=== PATIENT | female | born 1950 | race Caucasian/White ===

== ENCOUNTER 2017-07-18 13:30 | Outpatient (RCR) | payer MEDICARE, OTHER, SELFPAY ==
--- NOTE | 2017-06-27 15:47 | ST.OPIE ---
Provider Information Visit Care Team Role Provider Type LIZBETH Pierce Attending Provider Non-Staff Primary Care Provider Specialty: Medical Address: [address] [place] [address], [id number] Email: Speech-Language Pathology Initial Evaluation FISCAL ECONOMIST Clinical Swallow Evaluation Start: 06/27/17 15:24 Freq: Status: Active Protocol: Document 06/27/17 15:24 TLC (Rec: 06/27/17 15:47 TLC [id number]) Clinical Swallow Evaluation Session Time Visit Start Time 13:30 Visit Stop Time 14:20 Total Visit Minutes 50 Visit Information Visit Number 1 Plan of Care Dates Medicare Referral Referring Physician Reason for Referral Dysphagia identified during swallow screening Setting Assessment Location Outpatient Care Visit Type Note Type Initial Evaluation Next Note Type Next Note Type Treatment Note Patient Information Identification Type Name History Arianna is a 66 year old retired female with recent onset of symptoms consistent with dysphagia over the last 2 -3 months including frequent coughing and throat clearing as well as the sensation of food being caught in her throat after she swallows. Patient developed pneumonia ( unknown type) in the beginning of January 2017. She has a medical history of back pain, osteopenia and varicose veins. No other significant medical history. Subjective Observations Patient arrived on time. Evaluation Liquids Trialed Thin Solids Trialed Puree Dysphagia Mechanical Dysphagia Advanced Regular Administration Type Tea Spoon Controlled Cup Sip Self-Feeding Oral Impairment Mildly Impaired Oral Strategies Upright at 90 degrees Controlled Bite/Sip Size Alternate Liquids/Solids Other Oral Phase Comments Patient exhibits good oral acceptance of bolus; however, reports food going down the back of her throat before she is ready to swallow consistent with premature spillage and weak tongue control during bolus hold. With trial of chin down posture, patient reported significant improvements in management of bolus and preventing premature spillage. No oral residue observed. Pharyngeal Impairment Mildly Impaired Pharyngeal Phase Strategies Sitting Upright (90 deg) Effortful Swallow Small Bites and Sips Alternate Liquids/Solids Pharyngeal Phase Comments Patient exhibited a throat clear with trial of peaches. No other overt signs of aspiration were observed. We discussed the possibility of her throat clear being caused by unchewed pieces of peach which spilled into the pharyngeal cavity prematurely. Patient performed independent second swallow and liquid wash which cleared sensation of residue. Findings Dysphagia Type Oropharyngeal Rehabilitation Potential Excellent Impressions Given patient's symptoms and presentation, I suspect mild oropharyngeal dysphagia characterized by premature spillage and pharyngeal residue. With trial of chin down position, patient reported notable improvements with bolus control and containment in oral cavity. Patient's sensation of food stuck in throat improves with second swallow and/or liquid rinse. She was instructed in the use of these strategies as well as pharyngeal and base/ back of tongue strengthening exercises. Diet Recommendations Liquids Order Thin Diet Order Regular Medication Recommendations As Tolerated Aspiration Precautions Recommended Precautions Upright at 90 Degrees Alternate Liquids/Solids Small Bites/Sips Effortful Swallow Double Swallow Additional Precautions Chin down Treatment Plan Appropriate for Therapy Yes Therapy Recommendations Follow-up in two weeks to review pharyngeal and base/ back of tongue strengthening exercises. Dysphagia Goals Arianna will independently perform HEP as recommended in order to improve swallow function and reduce symptoms as evidenced by patient report and possible MBS if warranted . Arianna will implement strategies including chin down posture, throat clear with second swallow and liquid wash in order to minimize symptoms as evidenced by patient report. Please Sign and Return: I have reviewed this Plan of Care and certify that the skilled therapy services above are required to meet the patient???s needs. Physician Signature Date Printed Name and Credentials
== END 2017-10-29 13:13 ==
LOC: SP 13:30
PROVIDERS: PCP Nurse Practitioner Family; Visit Provider Nurse Practitioner Family
DX: R13.10 Dysphagia, unspecified (principal)
CPT/HCPCS: 92526; 92610

== ENCOUNTER → 2017-10-14 12:46 | Outpatient (CLI) | payer MEDICARE, OTHER, SELFPAY | PROVIDERS: PCP Nurse Practitioner Family; Visit Provider Nurse Practitioner Family | DX: M81.0 Age-related osteoporosis without current pathological fracture (principal); Z78.0 Asymptomatic menopausal state | CPT/HCPCS: 77080 ==

== ENCOUNTER → 2017-11-07 14:43 | Outpatient (CLI) | payer MEDICARE, OTHER, SELFPAY ==
--- NOTE | 2017-11-07 | DI.MRI.S_ITS ---
PROCEDURE: MR HEAD/BRAIN WO CON INDICATIONS: DEMENTIA. DECREASED BALANCE TECHNIQUE: Non-contrast axial T1 spin echo, axial T2 fast spin echo, sagittal and axial FLAIR, coronal T2 fast spin echo, axial gradient echo, axial diffusion and ADC through the brain. COMPARISON: None. FINDINGS: Image quality: Excellent. CSF spaces: Ventricles appear symmetric in size and shape. Basal cisterns are patent. No extra-axial fluid collections. Brain: No intracranial bleeds or mass effects. There is cerebral volume loss for age. There are periventricular and deep white matter chronic small vessel ischemic changes. Brainstem appears normal. Diffusion-weighted images show no acute ischemic insults. No chronic ischemic insults. Normal intravascular flow voids are present. Skull and face: Calvarial bone marrow is normal in signal. Orbits are normal. Sinuses: Sinuses demonstrate mild pansinus scattered fluid. There is minimal fluid within the mastoid air cells bilaterally. IMPRESSION: 1. No acute intracranial process. 2. Mild atrophy and chronic microvascular ischemic changes. Dictated by: Rossana Beltre M.D. on 11/07/2017 at 16:02 Approved by: Rossana Beltre M.D. on 11/07/2017 at 16:07
== END ==
PROVIDERS: PCP Nurse Practitioner Family; Visit Provider Specialist
DX: F03.90 Unspecified dementia, unspecified severity, without behavioral disturbance, psychotic disturbance, mood disturbance, and anxiety (principal)
CPT/HCPCS: 70551

== ENCOUNTER → 2017-11-26 09:53 | Outpatient (CLI) | payer MEDICARE, OTHER, SELFPAY ==
[2017-11-26 11:06] LABS: Calcium 9.6 mg/dL (8.4-10.2); Phosphorous 4.2 mg/dL (2.8-4.1)
[2017-11-26 11:17] LABS: Vitamin D 25 Hydroxy (D3) 48.2 ng/mL (30.0-100.0)
[2017-11-28 14:36] LABS: Parathyroid Hormone Int 38 pg/mL (14-64)
== END ==
PROVIDERS: PCP Nurse Practitioner Family; Visit Provider Nurse Practitioner
DX: M81.0 Age-related osteoporosis without current pathological fracture (principal)
CPT/HCPCS: 36415; 82306; 82310; 82523; 83970; 84100

== ENCOUNTER → 2017-12-27 12:12 | Outpatient (CLI) | payer MEDICARE, OTHER, SELFPAY ==
--- NOTE | 2017-12-27 12:14 | DI.MG.S_ITS ---
BILATERAL DIGITAL SCREENING MAMMOGRAM 3D/2D WITH CAD: 12/27/2017 CLINICAL: Routine screening. Comparison is made to exams dated: 12/05/2016 mammogram, 10/10/2015 mammogram, and 10/04/2014 mammogram - [facility]. The tissue of both breasts is heterogeneously dense. This may lower the sensitivity of mammography. Current study was also evaluated with a Computer Aided Detection (CAD) system. No significant masses, calcifications, or other findings are seen in either breast. There has been no significant interval change. IMPRESSION: NEGATIVE There is no mammographic evidence of malignancy. A 1 year screening mammogram is recommended. This exam was interpreted at Station ID: [id number]. NOTE: For mammograms, a report in lay terms will be sent to the patient. Approximately 15% of breast malignancies will not be visualized mammographically. In the management of a palpable breast mass, a negative mammogram must not discourage biopsy of a clinically suspicious lesion. Electronically Signed By: Sejal paz/sima:12/29/2017 09:15:49 letter sent: Normal Exam ACR BI-RADS Category 1: Negative 3341F
== END ==
PROVIDERS: PCP Nurse Practitioner Family; Visit Provider Nurse Practitioner Family
DX: Z12.31 Encounter for screening mammogram for malignant neoplasm of breast (principal)
CPT/HCPCS: 77063; 77067

== ENCOUNTER 2018-01-29 13:30 | Outpatient (RCR) | payer MEDICARE, OTHER, SELFPAY | END 2018-02-12 14:16 | LOC: SP 13:30 | PROVIDERS: PCP Nurse Practitioner Family; Visit Provider Nurse Practitioner Family | DX: G31.84 Mild cognitive impairment of uncertain or unknown etiology (principal) | CPT/HCPCS: 96125 ==

== ENCOUNTER → 2018-09-04 12:48 | Outpatient (CLI) | payer MEDICARE, OTHER, SELFPAY ==
--- NOTE | 2018-09-04 12:49 | DI.MRI.S_ITS ---
PROCEDURE: MR LUMBAR SPINE WO CON INDICATIONS: Low back pain TECHNIQUE: Noncontrast sagittal T1 spin echo and T2 fast echo, sagittal STIR, axial T1 and T2 fast spin echo through the lumbar spine. In cases with scoliosis, additional coronal T2 fast spin echo may be performed. COMPARISON: [facility], [place], THORAX WITH CONTRAST, 01/23/2017, 10:47. FINDINGS: Image quality: Excellent. Alignment and Curvature: There is mildly levoscoliotic bony alignment. Bone Marrow: Marrow is of normal overall signal. No acute vertebral body compression fractures. Spinal Cord: Conus medullaris terminates at the L1 level. Visualized cord demonstrates normal signal and size. Paraspinous Soft Tissues: No paravertebral masses. Note is made of a perineural cyst at the S2 segment at and to the left of midline. This is located within the remnant of the spinal canal in this area. L1-L2: Abnormal degenerative appearance with a moderate degree of disc height reduction and desiccation and bilateral facet osteoarthritis. There is only mild spinal stenosis as a result, however, and no definite foraminal stenosis on the left. Mild foraminal stenosis on the right is present with potential for asymmetric right-sided L1 nerve root impingement. L2-L3: At this level the degenerative disc disease is moderate, facet osteoarthritis is severe. Concentric spinal stenosis is present due to these factors and ligamentum flavum hypertrophy. Facet hyperostosis results in moderate symmetric foraminal stenosis. Both spinal and foraminal stenosis appears present at this level. L3-L4: The degenerative disc disease and facet osteoarthritis at this level is overall moderately severe with near severe spinal stenosis due to predominantly ligamentum flavum hypertrophy and symmetric facet hyperostosis. There is a slight posterior disc bulge. No disc herniation. L4-L5: Mild degenerative disc disease, moderately severe facet osteoarthritis. Mild to moderate spinal stenosis appears Concentric, moderate bilateral facet osteoarthritis produces foraminal stenosis that is mild to moderate. L5-S1: Facet osteoarthritis is mild to moderate, final stenosis is not present. Foraminal stenosis is minimal. No disc herniation found.. IMPRESSION: Mild levoscoliosis centered at the L2 level of the LS spine. No disc herniation is found. No trauma seen. The degenerative disc disease and facet osteoarthritis along the lumbosacral spine overall is moderately severe and comprised largely of facet hyperostosis leading to spinal and foraminal stenosis when the additional influence of ligamentum flavum hypertrophy and facet disease are added to the mild degenerative changes present superimpose. Multilevel spinal and foraminal stenosis is present with likelihood of significant multilevel radiculopathy as discussed in detail by level in the body of the report above. Dictated by: Winston Christensen M.D. on 09/04/2018 at 15:55 Approved by: Winston Christensen M.D. on 09/04/2018 at 16:05
== END ==
PROVIDERS: PCP Nurse Practitioner Family; Visit Provider Physical Medicine & Rehabilitation
DX: M47.817 Spondylosis without myelopathy or radiculopathy, lumbosacral region (principal); M54.5 Low back pain; M51.36 Other intervertebral disc degeneration, lumbar region; M47.816 Spondylosis without myelopathy or radiculopathy, lumbar region; M51.37 Other intervertebral disc degeneration, lumbosacral region; M48.061 Spinal stenosis, lumbar region without neurogenic claudication
CPT/HCPCS: 72148

== ENCOUNTER → 2018-10-15 13:15 | Outpatient (CLI) | payer MEDICARE, OTHER, SELFPAY | PROVIDERS: Family Provider Nurse Practitioner Family; PCP Nurse Practitioner Family; Visit Provider Nurse Practitioner | DX: M85.851 Other specified disorders of bone density and structure, right thigh (principal); Z78.0 Asymptomatic menopausal state; Z90.722 Acquired absence of ovaries, bilateral | CPT/HCPCS: 77080 ==

== ENCOUNTER → 2019-01-13 11:51 | Outpatient (CLI) | payer MEDICARE, OTHER, SELFPAY ==
--- NOTE | 2019-01-13 | DI.MG.S_ITS ---
BILATERAL DIGITAL SCREENING MAMMOGRAM 3D/2D WITH CAD: 01/13/2019 CLINICAL: Routine screening. Comparison is made to exams dated: 12/27/2017 mammogram, 12/05/2016 mammogram, and 10/10/2015 mammogram - [facility]. The tissue of both breasts is heterogeneously dense. This may lower the sensitivity of mammography. Current study was also evaluated with a Computer Aided Detection (CAD) system. No significant masses, calcifications, or other findings are seen in either breast. There has been no significant interval change. IMPRESSION: NEGATIVE There is no mammographic evidence of malignancy. A 1 year screening mammogram is recommended. This exam was interpreted at Station ID: [id number]. NOTE: For mammograms, a report in lay terms will be sent to the patient. Approximately 15% of breast malignancies will not be visualized mammographically. In the management of a palpable breast mass, a negative mammogram must not discourage biopsy of a clinically suspicious lesion. Electronically Signed By: Sourav zavala/sima:01/13/2019 12:23:11 letter sent: Normal Exam ACR BI-RADS Category 1: Negative 3341F
== END ==
PROVIDERS: Visit Provider Nurse Practitioner Family
DX: Z12.31 Encounter for screening mammogram for malignant neoplasm of breast (principal)
CPT/HCPCS: 77063; 77067

== ENCOUNTER → 2020-02-03 12:51 | Outpatient (CLI) | payer MEDICARE, OTHER, SELFPAY | PROVIDERS: PCP Internal Medicine; Referring Provider Nurse Practitioner Family; Visit Provider Nurse Practitioner Family | DX: Z12.31 Encounter for screening mammogram for malignant neoplasm of breast (principal); Z53.8 Procedure and treatment not carried out for other reasons ==

== ENCOUNTER → 2020-04-24 14:50 | Outpatient (CLI) | payer MEDICARE, OTHER, SELFPAY ==
[2020-04-24] MEDS: COVID-19 VACC, Ad26(JANSSEN)/PF 0.5 ML IM (14:55)
== END ==
PROVIDERS: PCP Internal Medicine; Visit Provider Internal Medicine
DX: Z23 Encounter for immunization (principal)
CPT/HCPCS: 0031A; 91303

== ENCOUNTER → 2020-11-01 12:42 | Outpatient (CLI) | payer MEDICARE, OTHER, SELFPAY | PROVIDERS: PCP Internal Medicine; Referring Provider Internal Medicine; Visit Provider Internal Medicine | DX: M81.0 Age-related osteoporosis without current pathological fracture (principal); M85.852 Other specified disorders of bone density and structure, left thigh; M85.851 Other specified disorders of bone density and structure, right thigh | CPT/HCPCS: 77080 ==

== ENCOUNTER → 2021-07-21 09:16 | Outpatient (CLI) | payer MEDICARE, OTHER, SELFPAY ==
[2021-07-21 09:39] LABS: Add Manual Diff / Slide Review NO; Basophils Absolute Auto 0 /uL (0-100); Basophils Percent Auto 0.2 % (0-2); Eosinophils Absolute Auto 700 /uL (0-450); Eosinophils Percent Auto 19.6 % (2-4); Hematocrit 37.5 % (36-46); Hemoglobin 12.3 g/dL (12.0-16.0); Lymphocytes Absolute Auto 1200 /uL (1100-4500); Lymphocytes Percent Auto 37.1 % (25-40); Mean Corpuscular HGB Conc 32.9 % (30-36); Mean Corpuscular Hemoglobin 25.8 PG (26-34); Mean Corpuscular Volume 78.5 fL (80-100); Monocytes Absolute Auto 300 /uL (0-900); Monocytes Percent Auto 8.9 % (3-14); Neutrophils Absolute Auto 1100 /uL (1500-7000); Neutrophils Percent Auto 34.2 % (50-75); Platelet Count 212 X10^3/uL (150-400); Red Blood Cell Count 4.78 X10^6/uL (4.0-5.2); Red Cell Distribution Width 17.1 % (11.6-14.8); White Blood Cell Count 3.4 X10^3/uL (4.5-11.0)
[2021-07-21 10:04] LABS: Hemoglobin A1C% w Est Avg Glu 5.3 % (4.0-6.0)
[2021-07-21 10:25] LABS: Alanine Aminotransferase 18 IU/L (<35); Albumin 4.4 g/dL (3.5-5.0); Albumin Globulin Ratio 1.5 (1.0-2.8); Alkaline Phosphatase 83 U/L (38-126); Aspartate Aminotransferase 38 IU/L (14-36); BUN Creatinine Ratio 22.1 (6-22); Bilirubin Total 0.3 mg/dL (0.2-1.3); Blood Urea Nitrogen 17 mg/dL (7-17); Calcium 9.3 mg/dL (8.4-10.2); Carbon Dioxide 29 mmol/L (22-32); Chloride 106 mmol/L (98-107); Cholesterol 193 mg/dL (140-199); Estimated Glomerular Filt Rate > 60 mL/min (>60); Globulin 2.9 g/dL (1.7-4.1); Glucose 89 mg/dL (80-110); HDL Cholesterol 94 mg/dL (40-60); HEMOLYSIS < 15 (0-50); LDL Cholesterol Calculated 87 mg/dL (<100); Potassium 4.5 mmol/L (3.4-5.1); Sodium 141 mmol/L (137-145); Total Protein 7.3 g/dL (6.3-8.2); Triglycerides 59 mg/dL (35-150)
[2021-07-21 10:53] LABS: Thyroid Stimulating Hormone 1.75 uIU/mL (0.47-4.68)
== END ==
PROVIDERS: PCP Internal Medicine; Referring Provider Internal Medicine; Visit Provider Internal Medicine
DX: Z00.00 Encounter for general adult medical examination without abnormal findings (principal); D72.819 Decreased white blood cell count, unspecified; F41.8 Other specified anxiety disorders
CPT/HCPCS: 36415; 80053; 80061; 83036; 84443; 85025

== ENCOUNTER → 2022-02-08 12:42 | Outpatient (CLI) | payer MEDICARE, OTHER, SELFPAY ==
--- NOTE | 2022-02-08 | DI.MG.S_ITS ---
BILATERAL DIGITAL SCREENING MAMMOGRAM 3D/2D WITH CAD: 02/08/2022 CLINICAL: Routine screening. Comparison is made to exams dated: 02/21/2020 mammogram - [facility], 01/13/2019 mammogram, and 12/27/2017 mammogram - [facility]. Both breasts are heterogeneously dense, which may obscure small masses (category c / 51-75% glandular tissue). Current study was also evaluated with a Computer Aided Detection (CAD) system. No significant masses, calcifications, or other findings are seen in either breast. There has been no significant interval change. IMPRESSION: NEGATIVE There is no mammographic evidence of malignancy. A 1 year screening mammogram is recommended. Based on the Tyrer Cuzick model (a risk assessment model) the patient's lifetime risk is 9.5% and her 10 year risk is 6.5%. According to the ACR, ACS, and NCCN guidelines, an annual breast MRI exam along with mammogram is recommended if the patient's lifetime risk is 20% or greater. This exam was interpreted at Station ID: [id number]. NOTE: For mammograms, a report in lay terms will be sent to the patient. Approximately 15% of breast malignancies will not be visualized mammographically. In the management of a palpable breast mass, a negative mammogram must not discourage biopsy of a clinically suspicious lesion. Electronically Signed By: Brittny olson/sima:02/08/2022 16:09:41 letter sent: Normal Exam ACR BI-RADS Category 1: Negative 3341F
== END ==
PROVIDERS: PCP Internal Medicine; Referring Provider Internal Medicine; Visit Provider Internal Medicine
DX: Z12.31 Encounter for screening mammogram for malignant neoplasm of breast (principal)
CPT/HCPCS: 77063; 77067

== ENCOUNTER → 2022-11-04 12:12 | Outpatient (CLI) | payer MEDICARE, OTHER, SELFPAY ==
--- NOTE | 2022-11-04 12:20 | DI.RAD.S_ITS ---
PROCEDURE: XR CHEST 2V INDICATIONS: CHRONIC COUGH TECHNIQUE: 2 views of the chest were acquired. COMPARISON: [facility], , CHEST 2 VIEW, 05/16/2017, 12:04. FINDINGS: Surgical changes and devices: None. Lungs and pleura: Lungs are clear. No pleural effusions or pneumothorax. Mediastinum: Mediastinal contours are normal. Heart size is normal. Bones and chest wall: No suspicious bony abnormalities. Soft tissues appear unremarkable. IMPRESSION: No acute process. Dictated by: Jorge Luis Josue M.D. on 11/04/2022 at 13:56 Approved by: Jorge Luis Josue M.D. on 11/04/2022 at 13:58
== END ==
PROVIDERS: PCP Internal Medicine; Referring Provider Internal Medicine; Visit Provider Internal Medicine
DX: R05.3 Chronic cough (principal)
CPT/HCPCS: 71046

== ENCOUNTER → 2023-01-27 10:19 | Outpatient (CLI) | payer MEDICARE, OTHER, SELFPAY ==
--- NOTE | 2023-01-27 | DI.RAD.S_ITS ---
Bone Density Report Name: CODY PEREZ Age: 72 Sex: Female Ethnicity: White Date of : 1950 Indication: postmenopausal osteoporosis; Referring Provider: BERTRAM CEDILLO Study: Bone densitometry was performed. Exam Date: January 27, 2023 Accession number: [id number] Bone Density: Region BMD T-score Z-score Classification AP Spine(L1, L2) 1.159 1.6 3.7 Normal Femoral Neck (Left) 0.599 -2.3 -0.3 Osteopenia Total Hip (Left) 0.692 -2.1 -0.4 Osteopenia Femoral Neck (Right) 0.632 -2.0 0.0 Osteopenia Total Hip (Right) 0.697 -2.0 -0.4 Osteopenia Total Hip Mean 0.695 -2.1 -0.4 Osteopenia World Health Organization criteria for BMD impression classify patients as: Normal (T-score at or above -1.0), Osteopenia (T-score between -1.0 and -2.5), or Osteoporosis (T-score at or below -2.5). 10-year Fracture Risk(1): Major Osteoporotic Fracture 12% Hip Fracture 3.2% Reported Risk Factors: [place] (), Neck BMD=0.599, BMI=21.0 (1) FRAX(R) Version 3.08. Fracture probability calculated for an untreated patient. Fracture probability may be lower if the patient has received treatment. Previous Exams: -- Region Exam Age BMD T-score BMD Change BMD Change Date g/cm2 vs Baseline vs Previous -- AP Spine (L1-L2) 01/27/2023 72 1.159 1.6 0.197 (20.5%)# 0.229 (24.7%)# 11/01/2020 69 0.930 -0.4 -0.032 (-3.4%)* -0.177 (-16.0%)* 10/15/2018 67 1.107 1.2 0.145 (15.0%)* 0.155 (16.3%)* 10/14/2017 66 0.951 -0.3 -0.011 (-1.1%) -0.011 (-1.1%) 10/10/2015 64 0.962 -0.2 Total Hip(Left) 01/27/2023 72 0.692 -2.1 -0.002 (-0.4%)# 0.003 (0.5%)# 11/01/2020 69 0.688 -2.1 -0.006 (-0.8%) -0.021 (-2.9%) 10/15/2018 67 0.709 -1.9 0.015 (2.2%) 0.024 (3.5%) 10/14/2017 66 0.686 -2.1 -0.009 (-1.2%) -0.009 (-1.2%) 10/10/2015 64 0.694 -2.0 Total Hip(Right) 01/27/2023 72 0.697 -2.0 0.012 (1.8%)# 0.063 (9.9%)# 11/01/2020 69 0.634 -2.5 -0.050 (-7.4%)* -0.043 (-6.4%)* 10/15/2018 67 0.678 -2.2 -0.007 (-1.0%) 0.062 (10.1%)* 10/14/2017 66 0.615 -2.7 -0.069 (-10.1%)* -0.069 (-10.1%)* 10/10/2015 64 0.685 -2.1 -- *Denotes significance at 95% confidence level, LSC for AP Spine = 0.022 g/cm2, LSC for Total Hip = 0.027 g/cm2 Rate of change results reflect vertebral levels common to all scans # Denotes dissimilar scan types or analysis methods Impression: The patient has low bone mass, based on the Left Femoral Neck T-score. The patient has an estimated ten-year risk of hip fracture of 3.2% and an estimated ten-year risk of major fracture of 12%, based on the WHO FRAX algorithm. No significant bone loss was observed. Discussion: BONE DENSITY IS LOW AT ONE OR MORE SKELETAL SITES. THE PATIENT'S BMD AND CLINICAL RISK FACTORS CONTRIBUTE TO THIS PATIENT'S INCREASED RISK OF FRACTURE. This patient's lowest T-score is low at one or more skeletal sites. It meets the World Health Organization's (WHO) criteria for low bone mass (T-score between -1.0 and -2.5). The patient's 10-year risk of hip fracture as calculated by FRAX exceeds the threshold where pharmacological therapy is recommended by the National Osteoporosis Foundation (NOF). However, all treatment decisions require clinical judgment and consideration of individual patient factors, including patient preferences, comorbidities, previous drug use, risk factors not captured in the FRAX model (e.g., frailty, falls, vitamin D deficiency, increased bone turnover, interval significant decline in bone density) and possible under or overestimation of fracture risk by FRAX. The patient should follow a healthful lifestyle (good nutrition with adequate calcium and vitamin D, and appropriate weight-bearing exercise). Follow-Up: Consider a repeat BMD and Vertebral Fracture Assessment (VFA) exam in 2 years or sooner if medically necessary, to reassess this patient's status. Reported by: SHIRIN GIORDANO MD on 01/27/2023 10:45:00 AM.
== END ==
PROVIDERS: PCP Internal Medicine; Referring Provider Internal Medicine; Visit Provider Internal Medicine
DX: M81.0 Age-related osteoporosis without current pathological fracture (principal)
CPT/HCPCS: 77080

== ENCOUNTER → 2023-03-12 11:53 | Outpatient (CLI) | payer MEDICARE, OTHER, SELFPAY ==
--- NOTE | 2023-03-12 11:55 | DI.MG.S_ITS ---
BILATERAL DIGITAL SCREENING MAMMOGRAM 3D/2D WITH CAD: 03/12/2023 CLINICAL: Routine screening. Comparison is made to exams dated: 02/08/2022 mammogram - [facility], 02/21/2020 mammogram - [facility], and 01/13/2019 mammogram - [facility]. Both breasts are heterogeneously dense, which may obscure small masses (category c / 51-75% glandular tissue). Current study was also evaluated with a Computer Aided Detection (CAD) system. No significant masses, calcifications, or other findings are seen in either breast. There has been no significant interval change. IMPRESSION: NEGATIVE There is no mammographic evidence of malignancy. A 1 year screening mammogram is recommended. Based on the Tyrer Cuzick model (a risk assessment model) the patient's lifetime risk is 9.0% and her 10 year risk is 6.7%. According to the ACR, ACS, and NCCN guidelines, an annual breast MRI exam along with mammogram is recommended if the patient's lifetime risk is 20% or greater. This exam was interpreted at Station ID: [id number]. NOTE: For mammograms, a report in lay terms will be sent to the patient. Approximately 15% of breast malignancies will not be visualized mammographically. In the management of a palpable breast mass, a negative mammogram must not discourage biopsy of a clinically suspicious lesion. Electronically Signed By: Sourav zavala/sima:03/12/2023 23:30:47 letter sent: Normal Exam ACR BI-RADS Category 1: Negative 3341F
== END ==
PROVIDERS: PCP Internal Medicine; Referring Provider Internal Medicine; Visit Provider Internal Medicine
DX: Z12.31 Encounter for screening mammogram for malignant neoplasm of breast (principal); R92.333 Mammographic heterogeneous density, bilateral breasts
CPT/HCPCS: 77063; 77067

== ENCOUNTER → 2023-03-19 09:41 | Outpatient (CLI) | payer MEDICARE, OTHER, SELFPAY ==
[2023-03-19 10:36] LABS: Add Manual Diff / Slide Review NO; Basophils Absolute Auto 100 /uL (0-100); Basophils Percent Auto 1.2 % (0-2); Eosinophils Absolute Auto 600 /uL (0-450); Eosinophils Percent Auto 13.6 % (2-4); Hematocrit 43.7 % (36-46); Hemoglobin 14.3 g/dL (12.0-16.0); Lymphocytes Absolute Auto 1100 /uL (1100-4500); Lymphocytes Percent Auto 24.9 % (25-40); Mean Corpuscular HGB Conc 32.8 % (30-36); Mean Corpuscular Hemoglobin 27.2 PG (26-34); Monocytes Absolute Auto 400 /uL (0-900); Monocytes Percent Auto 8.6 % (3-14); Neutrophils Absolute Auto 2400 /uL (1500-7000); Neutrophils Percent Auto 51.7 % (50-75); Platelet Count 200 X10^3/uL (150-400); Red Blood Cell Count 5.27 X10^6/uL (4.0-5.2); White Blood Cell Count 4.6 X10^3/uL (4.5-11.0)
[2023-03-19 10:59] LABS: Alanine Aminotransferase 24 IU/L (<35); Albumin 4.2 g/dL (3.5-5.0); Albumin Globulin Ratio 1.4 (1.0-2.8); Alkaline Phosphatase 81 U/L (38-126); Aspartate Aminotransferase 38 IU/L (14-36); BUN Creatinine Ratio 23.3 (6-22); Bilirubin Total 0.5 mg/dL (0.2-1.3); Blood Urea Nitrogen 17 mg/dL (7-17); Calcium 9.8 mg/dL (8.4-10.2); Carbon Dioxide 28 mmol/L (22-32); Chloride 107 mmol/L (98-107); Estimated Glomerular Filt Rate > 60 mL/min (>60); Globulin 3.1 g/dL (1.7-4.1); Glucose 88 mg/dL (80-110); HEMOLYSIS < 15 (0-50); Iron 58 ug/dL (37-170); Potassium 4.5 mmol/L (3.4-5.1); Sodium 141 mmol/L (137-145); Total Protein 7.3 g/dL (6.3-8.2)
[2023-03-19 11:13] LABS: Total Iron Binding Capacity 337 ug/dL (265-497); Transferrin 296 mg/dL (206-381)
[2023-03-19 11:17] LABS: Free T4, Direct Thyroxine 1.13 ng/dL (0.78-2.19)
[2023-03-19 11:31] LABS: Thyroid Stimulating Hormone 2.04 uIU/mL (0.47-4.68)
[2023-03-19 11:34] LABS: Ferritin 11 ng/mL (11-264)
[2023-03-19 11:49] LABS: Vitamin B12 > 1000 pg/mL (239-931)
[2023-03-19 16:27] LABS: Cholesterol 188 mg/dL (140-199); HDL Cholesterol 93 mg/dL (40-60); LDL Cholesterol Calculated 86 mg/dL (<100); Triglycerides 47 mg/dL (35-150)
[2023-03-19 20:28] LABS: Vitamin D 25 Hydroxy (D3) 54.1 ng/mL (30.0-100.0)
== END ==
PROVIDERS: PCP Internal Medicine; Referring Provider Registered Nurse; Visit Provider Registered Nurse
DX: Z00.00 Encounter for general adult medical examination without abnormal findings (principal); Z13.0 Encounter for screening for diseases of the blood and blood-forming organs and certain disorders involving the immune mechanism; D64.9 Anemia, unspecified; M81.0 Age-related osteoporosis without current pathological fracture; Z13.220 Encounter for screening for lipoid disorders; Z13.29 Encounter for screening for other suspected endocrine disorder; E53.8 Deficiency of other specified B group vitamins
CPT/HCPCS: 36415; 80053; 80061; 82306; 82607; 82728; 83540; 83550; 84439; 84443; 84466; 85025

== ENCOUNTER → 2023-04-09 15:17 | Outpatient (CLI) | payer MEDICARE, OTHER, SELFPAY ==
--- NOTE | 2023-04-09 15:19 | DI.CT.S_ITS ---
PROCEDURE: CT SOFT TISSUE NECK W CON INDICATIONS: esophageal dysphagia TECHNIQUE: After the administration of intravenous contrast, 3.0 mm axial sections acquired from the sella to the aortic arch. Additional oblique axial 3.0 mm sections acquired through the pharynx. 3 mm thick coronal and sagittal reformats were generated. For radiation dose reduction, the following was used: automated exposure control. COMPARISON: None. FINDINGS: Skull Base: The visualized intracranial contents, skull, and orbits are unremarkable. Visualized paranasal sinuses are clear. Pharynx and Larynx: The nasopharyngeal airway is patent and midline. Parapharyngeal soft tissues including palatine tonsils and base of the tongue are normal. Retropharyngeal space unremarkable. Normal appearance of the false and true vocal cords. Muscles and Fascial Planes: Fascial planes are well maintained. No abscess or mass lesion. Lymph Nodes: No evidence of adenopathy. Vasculature: Unremarkable. Submandibular and Parotid Glands: Normal in size and attenuation. Thyroid: Unremarkable. No enlarged or calcified nodules. Bones: No acute fracture. No osteolytic or blastic lesion is evident. Normal bone mineralization. Degenerative disc disease and arthropathy in the cervical spine Lung Apices: Multifocal ground-glass densities noted in the lung apices IMPRESSION: 1. Unremarkable CT of the neck. 2. Multifocal ground-glass opacities in the lung apices measure up to 1.5 cm. This could reflect an infectious or inflammatory process Approved by: Hernandez Guallpa M.D. on 04/09/2023 at 15:42
== END ==
PROVIDERS: PCP Internal Medicine; Referring Provider Surgery; Visit Provider Surgery
DX: R13.10 Dysphagia, unspecified (principal)
CPT/HCPCS: 70491

== ENCOUNTER 2023-04-11 12:39 | Day surgery (SDC) | payer MEDICARE, OTHER, SELFPAY ==
--- NOTE | 2023-04-11 | PATH_ITS ---
[facility] Accession Number: [id number] No. of containers..01 Tissue . 01 Material submitted: . esophagus, E-G Junction - GE JUNCTION . 01 Diagnosis: GE JUNCTION: Esophageal squamous mucosa with markedly increased eosinophils and focal active neutrophilic inflammation. No dysplasia or fungal organisms identified. See comment. [facility] 04/16/2023 1522 Local . 01 Comment: Eosinophils are present up to 60 per high power field among the squamous epithelium, including occasional eosinophilic microabscesses. Eosinophils are also abundant among the underlying lamina propria and among the muscularis mucosae. No infectious organisms are seen. An ABPAS stain was performed to evaluate for fungal organisms, and is negative. The control stains appropriately. The histologic changes are compatible with eosinophilic esophagitis in the right clinical setting. Severe reflux, drug-induced inflammation, or certain infectious processes also enter the differential, although no infectious organisms are seen in this sample. Clinical correlation is recommended, including correlation with any allergic sequelae. . 01 Electronically signed: . Justo Morris MD, Pathologist NPI- [id number] . 01 Gross description: . GE JUNCTION: Received in formalin are 3 fragment(s) of alvarez, soft tissue measuring 0.2 x 0.2 x 0.2 cm to 0.5 x 0.3 x 0.2 cm submitted entirely in 1 cassette(s) /PETE 04/16/2023 1522 Local . 01 Pathologist provided ICD-10: K20.0 . 01 CPT . 963290, 288622 Specimen Comment: A courtesy copy of this report has been sent to [phone] Performed at: [facility] [address] [place] [address] [address] [facility], [place], [place] [id number] MD Justo Morris MD Phone: [phone]
[2023-04-11 14:15] VITALS: BP 125/71; PULSE 67; RESP 16; TEMP 36.2; O2SAT 100
--- NOTE | 2023-04-11 14:15 | P.OP.EGD_ITS ---
Operative Date/Time/Diagnoses Date of procedure: 04/11/23 Time of procedure: 15:29 Pre-op diagnosis: Esophageal dysphagia Post-op diagnosis: other (Esophagitis) Procedure & Clinicians Study performed: Diagnostic Esophagogastroduodenoscopy Same procedure as scheduled: Yes Indications: 72-year-old woman with esophageal dysphagia Surgeon: Charles Armas Procedure Notes Procedure in detail: The history and physical was performed/updated and the patient is ASA class is 2. The procedure was discussed in detail with the patient. Potential risks complications including infection, bleeding, missed diagnosis, perforation, need for surgery, and were explained. Their questions were answered and informed consent was obtained. Patient placed in left lateral decubitus position. Time out was performed. Procedural sedation was administered by Anesthesia. A bite block was placed. the scope was inserted into the mouth and advanced through the esophagus and into the stomach. The pylorus was intubated and the duodenum was examined to th e 2nd portion. The scope was then withdrawn into the stomach and was retroflexed. The stomach was decompressed and scope was withdrawn slowly through the esophagus. FINDINGS -friable inflamed esophageal mucosa at the GE junction 38 cm from the incisors circumferentially. Multiple biopsies taken with forceps. -Stomach and duodenum largely unremarkable The patient tolerated the procedure well and will be discharged when they meet criteria. Impression: Esophagitis Post-procedure Plan for aftercare: Increase omeprazole to 40 mg twice daily Disposition: same day surgery
--- NOTE | 2023-04-11 14:15 | PM.PREOP ---
Pre-operative Note Interval Note History & Physical reviewed/Exam performed by Physician: Yes Changes to H&P: No
[2023-04-11] MEDS: LACTATED RINGERS 1,000 ML 150 ML IV (14:19)
[2023-04-11 15:20] VITALS: BP 102/61; PULSE 79; RESP 18; TEMP 36.3; O2SAT 96
[2023-04-11 15:25] VITALS: BP 113/62; PULSE 76; RESP 18; O2SAT 96
[2023-04-11 15:33] VITALS: BP 106/54; PULSE 69; RESP 18; TEMP 36.3; O2SAT 96
[2023-04-11 16:05] VITALS: BP 128/84; PULSE 66; RESP 16; O2SAT 97
== END 2023-04-11 16:22 | disposition home or self-care (01) ==
PROVIDERS: PCP Internal Medicine; Referring Provider Surgery; Visit Provider Surgery
PROC: 0DJ08ZZ Inspection of Upper Intestinal Tract, Via Natural or Artificial Opening Endoscopic (ICD-10-PCS; CPT 43235; principal; 2023-04-11 14:30)
DX: K20.0 Eosinophilic esophagitis (principal)
CPT/HCPCS: 43239; J2704

== ENCOUNTER 2023-08-04 12:22 | Emergency (ER) | payer MEDICARE, OTHER, SELFPAY ==
[2023-08-04] VITALS (13 sets, daily range): BP systolic 127–168; BP diastolic 62–79; PULSE 69–83; RESP 17–24; TEMP 36.6; O2SAT 89–94; BMI 18.8
--- NOTE | 2023-08-04 12:39 | DI.RAD.S_ITS ---
PROCEDURE: XR CHEST 1V INDICATIONS: Shortness of breath TECHNIQUE: One view of the chest was acquired. COMPARISON: [facility], CT, CT SOFT TISSUE NECK W CON, 04/09/2023, 15:28. [facility], CR, XR CHEST 2V, 11/04/2022, 12:37. [facility], CR, CHEST 2 VIEW, 05/16/2017, 12:04. FINDINGS: Surgical changes and devices: None. Lungs and pleura: Lungs are clear. No pleural effusions or pneumothorax. Mediastinum: Mediastinal contours appear normal. Heart size is normal. Bones and chest wall: No suspicious bony lesions. Overlying soft tissues appear unremarkable. S-shaped curvature of the thoracolumbar spine. IMPRESSION: No acute cardiopulmonary abnormality is seen. Dictated by: Aydin Aranda M.D. on 08/04/2023 at 13:22 Approved by: Aydin Aranda M.D. on 08/04/2023 at 13:24
--- NOTE | 2023-08-04 12:39 | EKG_ITS ---
[address] [address] Test Date: 2023-08-04 Pat Name: Arianna Mims Department: [facility] Room: Gender: Female [employer]: ALFONSO : 1950 Requested By: Order Number: [id number] Reading MD: Rex Craig Measurements Intervals [place] Rate: 78 P: 67 KS: 114 QRS: 67 QRSD: 74 T: 68 QT: 384 QTc: 437 Interpretive Statements Normal sinus rhythm Anterior infarct , age undetermined Electronically Signed On 08-04-2023 16:37:44 PDT by Rex Craig
[2023-08-04 13:02] LABS: Add Manual Diff / Slide Review NO; Basophils Absolute Auto 100 /uL (0-100); Basophils Percent Auto 0.7 % (0-2); Eosinophils Absolute Auto 200 /uL (0-450); Eosinophils Percent Auto 2.9 % (2-4); Hematocrit 46.1 % (36-46); Hemoglobin 15.1 g/dL (12.0-16.0); Lymphocytes Absolute Auto 1000 /uL (1100-4500); Mean Corpuscular HGB Conc 32.8 % (30-36); Mean Corpuscular Hemoglobin 27.2 PG (26-34); Mean Corpuscular Volume 83.1 fL (80-100); Monocytes Absolute Auto 500 /uL (0-900); Monocytes Percent Auto 6.6 % (3-14); Neutrophils Absolute Auto 5900 /uL (1500-7000); Neutrophils Percent Auto 76.8 % (50-75); Platelet Count 216 X10^3/uL (150-400); Red Blood Cell Count 5.55 X10^6/uL (4.0-5.2); White Blood Cell Count 7.7 X10^3/uL (4.5-11.0)
[2023-08-04 13:06] LABS: Prothrombin Time 11.8 SECONDS (9.4-12.5)
[2023-08-04 13:10] LABS: Lactate (Lactic Acid) 1.2 mmol/L (0.7-2.1)
[2023-08-04 13:11] LABS: Alanine Aminotransferase 32 IU/L (<35); Albumin 4.7 g/dL (3.5-5.0); Albumin Globulin Ratio 1.5 (1.0-2.8); Alkaline Phosphatase 116 U/L (38-126); Aspartate Aminotransferase 49 IU/L (14-36); BUN Creatinine Ratio 32.5 (6-22); Bilirubin Total 0.7 mg/dL (0.2-1.3); Blood Urea Nitrogen 25 mg/dL (7-17); Calcium 9.4 mg/dL (8.4-10.2); Carbon Dioxide 25 mmol/L (22-32); Chloride 108 mmol/L (98-107); Estimated Glomerular Filt Rate > 60 mL/min (>60); Globulin 3.2 g/dL (1.7-4.1); Glucose 115 mg/dL (80-110); HEMOLYSIS 35 (0-50); Potassium 4.6 mmol/L (3.4-5.1); Sodium 142 mmol/L (137-145); Total Protein 7.9 g/dL (6.3-8.2)
[2023-08-04 13:23] LABS: NT-proBNP (BNP-Adult 18+) 102 pg/mL (<125); Troponin I < 0.012 ng/mL (0.01-0.034)
--- NOTE | 2023-08-04 14:20 | ED_ITS ---
HPI - General Adult General Chief complaint: Shortness of Breath/Dyspnea Stated complaint: weakness, sob, esophagitis, post endo Friday Time Seen by Provider: 08/04/23 14:20 Source: patient Mode of arrival: Wheelchair History of Present Illness HPI narrative: Patient is a 72-year-old female. For the past several months she has been dealing with issues with her esophagus and also weakness and shortness of breath. She has had 2 endoscopies. The most recent 1 was about a week ago. She was diagnosed with eosinophilic esophagitis. Was placed on a new proton pump inhibitor. She was also been trying Flonase. She states she has never had a pulmonary function test. Has never seen by pulmonology. Never seen by Cardiology. She denies chest pain. She was here because she was becoming progressively more weak and shortness of breath even with short exertion. No chest pain. Related Data Home Medications Medication Instructions Recorded Confirmed Sertraline hydrochloride PO 04/04/23 gabapentin 600 mg tablet 600 mg PO TID 04/04/23 04/04/23 memantine 10 mg tablet 10 mg PO BID 04/04/23 04/04/23 Previous Rx's Medication Instructions Recorded omeprazole 40 mg capsule,delayed 40 mg PO BID #60 caps 04/11/23 release fluticasone propionate 220 2 puff inhalation BID #12 grams 07/01/23 mcg/actuation HFA aerosol inhaler prednisone 20 mg tablet 20 mg PO DAILY 7 days #7 tabs 08/04/23 Allergies Allergy/AdvReac Type Severity Reaction Status Date / Time No Known Drug Allergies Allergy Verified 08/04/23 12:39 Review of Systems Review of Systems ROS Unobtainable: All systems reviewed & are unremarkable except as noted in HPI and below Patient History Medical History Osteoporosis Neuropathy H/O multiple sclerosis Alzheimer disease Insomnia with sleep apnea, unspecified Obstructive sleep apnea Neuropathic pain Erythromelalgia Surgical History Status post hysterectomy Family History Father Stroke Heart disease Mother ALS (amyotrophic lateral sclerosis) Social History marital status: number of children: 0 household members: spouse lives independently: Yes occupational status: previously employed Smoking Status: Never smoker alcohol intake: current substance use type: does not use Smoking Status: Never smoker alcohol intake frequency: holidays/special occasions only Substance Use Type: does not use Exam Initial Vital Signs Initial Vital Signs: Vital Signs Temperature 97.9 F 08/04/23 12:33 Pulse Rate 78 08/04/23 12:33 Respiratory Rate 18 08/04/23 12:33 Blood Pressure 129/79 08/04/23 12:33 Pulse Oximetry 91 08/04/23 12:33 Oxygen Delivery Method Room Air 08/04/23 12:33 Const General: cooperative, comfortable and No ill appearing HENMT Head: normal to inspection and normocephalic Resp Effort & Inspection: normal respiratory effort, not labored and not tachypneic Auscultation: no rhonchi and no wheezes Cardio Rate: regular rate Rhythm: regular rhythm GI Inspection: normal to inspection and non-distended Skin General: no rashes or lesions noted Neuro General: patient alert, patient awake and moves all extremities Extrem General: No edema Course Orders Ordered: ED Orders 08/04/23 12:39 XR chest 1V Stat EKG-12 Lead Stat RT Consult Eval and Treat NOW 08/04/23 12:45 Complete Blood Count AUTO DIFF Stat Comprehensive Metabolic Panel Stat Lactate (Lactic Acid) Stat NT-proBNP (BNP-Adult 18+) Stat Prothrombin Time INR Stat Troponin I Stat Discontinued Medications Prednisone (Prednisone 20 Mg Tablet) 20 mg PO NOW ONE Stop: 08/04/23 14:37 Last Admin: 08/04/23 14:40 Dose: 20 mg Documented By: [facility] Vital Signs Vital signs: Vital Signs - 8 hr 08/04/23 12:33 08/04/23 14:18 08/04/23 14:20 Temperature 97.9 F Pulse Rate 78 76 Respiratory Rate 18 21 Blood Pressure 129/79 127/66 Pulse Oximetry 91 93 Oxygen Delivery Method Room Air 08/04/23 14:20 08/04/23 14:30 08/04/23 14:30 Temperature Pulse Rate 71 74 Respiratory Rate 19 20 Blood Pressure 130/66 Pulse Oximetry 94 94 Oxygen Delivery Method Medical Decision Making Lab Data Lab results reviewed: Yes I reviewed the patient's lab results. 08/04/23 12:45 06/24/24 12:45 Labs: Lab Results 08/04/23 Range/Units 12:45 WBC 7.7 (4.5-11.0) X10^3/uL RBC 5.55 H (4.0-5.2) X10^6/uL Hgb 15.1 (12.0-16.0) g/dL Hct 46.1 H (36-46) % MCV 83.1 (80-100) fL MCH 27.2 (26-34) PG MCHC 32.8 (30-36) % RDW 17.0 H (11.6-14.8) % Plt Count 216 (150-400) X10^3/uL Neut % (Auto) 76.8 H (50-75) % Lymph % (Auto) 13.0 L (25-40) % Moody % (Auto) 6.6 (3-14) % Eos % (Auto) 2.9 (2-4) % Baso % (Auto) 0.7 (0-2) % Neut # (Auto) 5900 (3595-4537) /uL Lymph # (Auto) 1000 L (6978-0025) /uL Moody # (Auto) 500 (0-900) /uL Eos # (Auto) 200 (0-450) /uL Baso # (Auto) 100 (0-100) /uL PT 11.8 (9.4-12.5) SECONDS INR 1.0 (0.9-1.3) Sodium 142 (137-145) mmol/L Potassium 4.6 (3.4-5.1) mmol/L Chloride 108 H (98-107) mmol/L Carbon Dioxide 25 (22-32) mmol/L BUN 25 H (7-17) mg/dL Creatinine 0.77 (0.52-1.04) mg/dL Estimated GFR > 60 (>60) mL/min BUN/Creatinine Ratio 32.5 H (6-22) Glucose 115 H (80-110) mg/dL Lactate 1.2 (0.7-2.1) mmol/L Calcium 9.4 (8.4-10.2) mg/dL Total Bilirubin 0.7 (0.2-1.3) mg/dL AST 49 H (14-36) IU/L ALT 32 (<35) IU/L Alkaline Phosphatase 116 (38-126) U/L Troponin I < 0.012 (0.01-0.034) ng/mL NT-Pro-B Natriuret Pep 102 (<125) pg/mL Total Protein 7.9 (6.3-8.2) g/dL Albumin 4.7 (3.5-5.0) g/dL Globulin 3.2 (1.7-4.1) g/dL Albumin/Globulin Ratio 1.5 (1.0-2.8) Imaging Data Chest x-ray: Radiologist's Impression: PROCEDURE: XR CHEST 1V INDICATIONS: Shortness of breath TECHNIQUE: One view of the chest was acquired. COMPARISON: [facility], CT, CT SOFT TISSUE NECK W CON, 04/09/2023, 15:28. [facility], CR, XR CHEST 2V, 11/04/2022, 12:37. [facility], CR, CHEST 2 VIEW, 05/16/2017, 12:04. FINDINGS: Surgical changes and devices: None. Lungs and pleura: Lungs are clear. No pleural effusions or pneumothorax. Mediastinum: Mediastinal contours appear normal. Heart size is normal. Bones and chest wall: No suspicious bony lesions. Overlying soft tissues appear unremarkable. S-shaped curvature of the thoracolumbar spine. IMPRESSION: No acute cardiopulmonary abnormality is seen. ECG Data Attestation: I personally reviewed and interpreted this ECG as follows: Interpretation: Sinus rhythm Ventricular rate is 78 Normal axis Normal QRS Normal QTC No ST T wave changes MDM Narrative Medical decision making narrative: Patient has had prolonged symptoms of shortness of breath. Her lungs are clear. Not hypoxic. She has having a nonproductive cough. There was no signs infection. Low suspicion for pulmonary embolism patient states she has never been evaluated by pulmonology or of head pulmonary function test. Has never been evaluated by Cardiology. Plan will be to start her on steroids for the next couple days to see if she gets any improvement with this. Will have her continue with the proton pump inhibitor. He was able to contact her primary doctor and was able to schedule her an appointment for tomorrow at 1600 hours. They were informed of this. They were given return precautions. Discharge Plan Departure Patient Disposition: Home Clinical Impression: Shortness of breath Instructions: DI for Shortness of Breath Activity Restrictions/Additional Instructions: We were able to schedule your appointment for tomorrow Friday08/05/2023 at 1600 hours at your primary care doctor's office. Recommend that you show a 15 minutes prior to this appointment. Continue all of your medications as directed. Return to the emergency department for new symptoms. Prescriptions: New prednisone 20 mg tablet 20 mg PO DAILY 7 Days Qty: 7 0RF No Action fluticasone propionate 220 mcg/actuation HFA aerosol inhaler 2 puff inhalation BID Qty: 12 0RF Rx Instructions: spray into the mouth and then swallow do NOT inhale the medication. Do NOT eat or drink for 30 minutes following administration. gabapentin 600 mg tablet 600 mg PO TID memantine 10 mg tablet 10 mg PO BID Rx Instructions: Takes 1 tablet Qam and 1/2 tablet Qpm Sertraline hydrochloride PO Rx Instructions: Pt. takes one 100mg tablet daily omeprazole 40 mg capsule,delayed release(DR/EC) 40 mg PO BID Qty: 60 0RF Referrals: Liza Hahn ARNP [Primary Care Provider] - Stand Alone Forms: Patient Portal/API
--- NOTE | 2023-08-04 14:20 | PC.NURSE ---
Increase shortness of breath with activity. Coughing constantly per patient states she intermittently will get something up and it does help relieve her symptoms for a short while. Patient states she just feels fatigued.
[2023-08-04] MEDS: predniSONE 20 MG TABLET PO (14:40)
--- NOTE | 2023-08-04 15:20 | PC.NURSE ---
Patient and spouse very reluctant to discharge home As you can see several days of this is exhausting and hard to watch Patient sitting upright at edge of bed having a coughing fit, no productive at this time. Patient oxygen 91-92% on room air during cough. Dr pineda notified of patients concerns and current condition. order for cough medication being placed. Wicho OBRIEN will obtain care and assist with disposition
[2023-08-04] MEDS: BENZONATATE 100 MG CAPSULE PO (15:26)
--- NOTE | 2023-08-04 15:27 | DI.CT.S_ITS ---
PROCEDURE: CT CHEST WO CON INDICATIONS: SOB and cough TECHNIQUE: Noncontrast 2.0-2.5 mm thick sections acquired from the pulmonary apices to the posterior costophrenic angles. 7 mm thick axial MIP and 5 mm coronal and sagittal reformats were then acquired. For radiation dose reduction, the following was used: automated exposure control, adjustment of mA and/or kV according to patient size. COMPARISON: None. FINDINGS: Image quality: Suboptimal due to motion artifact. Lower Neck: No enlarged lymph nodes. Thyroid: No thyroid nodules which require sonographic follow up, per consensus guidelines. Axillae: No enlarged lymph nodes. Chest Wall: Unremarkable. Bones: Unremarkable. Lungs and Pleura: No pneumothorax or pleural effusions. Peripheral ground-glass consolidation in the upper lobes and right lower lobe. Bronchial thickening with endobronchial secretions. Heart: Heart size is normal. No pericardial effusion. Thoracic Vessels: The aorta and pulmonary arteries demonstrate normal size. Mediastinum and Monie: No enlarged lymph nodes. Esophagus: No wall thickening. No hiatal hernia. Upper Abdomen: Hepatic cysts. IMPRESSION: Patchy ground-glass consolidation in the upper lobes and right lower lobe. Findings are suspicious for viral pneumonia. Superimposed bronchial thickening with endobronchial secretions. Aspiration not excluded. Correlate with risk factors. Dictated by: Aydin Aranda M.D. on 08/04/2023 at 16:33 Approved by: Aydin Aranda M.D. on 08/04/2023 at 16:35
== END 2023-08-04 17:23 | disposition home or self-care (01) ==
PROVIDERS: Emergency Provider Emergency Medicine; PCP Internal Medicine
DX: R06.02 Shortness of breath (principal); R05.9 Cough, unspecified
CPT/HCPCS: 36415; 71045; 71250; 80053; 83605; 83880; 84484; 85025; 85610; 93005; 99284; 99285

== ENCOUNTER → 2023-08-19 13:20 | Outpatient (CLI) | payer MEDICARE, OTHER, SELFPAY | PROVIDERS: Family Provider Internal Medicine; PCP Internal Medicine; Referring Provider Internal Medicine; Visit Provider Internal Medicine | DX: R05.3 Chronic cough (principal); R94.2 Abnormal results of pulmonary function studies | CPT/HCPCS: 94060; 94726; 94729 ==

== ENCOUNTER → 2023-10-17 13:51 | Outpatient (CLI) | payer MEDICARE, OTHER, SELFPAY ==
--- NOTE | 2023-10-17 | DI.ECHO.S_ITS ---
[facility] : : [address] : : [place] : : [id number] : : Phone: [phone] Echocardiogram Report + + :Name: CODY PEREZ Study Date: 10/17/2023 Height: 67 in : :[facility] ReadingLocation: Weight: 117 lb : : Gender: Female BSA: 1.6 m2 : :: 1950 Age: 72 yrs BP: 108/72 mmHg: :Reason For Study: SOB/DYSPNEA : :Ordering Physician: MAMADOU, : :BERTRAM Performed By: Jena Armendariz : :Referring: BERTRAM CEDILLO : + + Interpretation Summary Normal sinus rhythm. Normal LV size, wall thickness, wall motion and LV systolic function. EF is 60-65%. Stage I diastolic dysfunction (appropriate for age). Normal chamber sizes. No valve abnormalities. No prior study available for comparison. Procedure: A two-dimensional transthoracic echocardiogram with color flow and Doppler was performed. The study quality was technically adequate. There is no prior echocardiogram noted for this patient. The patient was in sinus rhythm with heart rates between 63-70 bpm during the exam. Left Ventricle: The left ventricle is normal in size and wall thickness. The ejection fraction is estimated to be 60-65%. Right Ventricle: The right ventricle is normal in size and function. Atria: The left atrial size is normal. Right atrial size is normal. There is no Doppler evidence for an interatrial shunt. Mitral Valve: The mitral valve is normal in structure and function. There is trace mitral regurgitation. Aortic Valve: The aortic valve is trileaflet. The aortic valve opens well. There is no aortic valve stenosis. No aortic regurgitation is present. Tricuspid Valve: The tricuspid valve is normal in structure and function. There is trace tricuspid regurgitation. The right ventricular systolic pressure is estimated to be at least 33 mmHg based on an estimated right atrial pressure of 3 mm Hg. Pulmonic Valve: The pulmonic valve leaflets are thin and pliable; valve motion is normal. There is trace pulmonic regurgitation. Great Vessels: The aortic root is normal size. The dimensions of the ascending aorta are normal. The IVC is of normal diameter and collapses greater than 50% with a sniff. This suggests a low right atrial pressure of 3 mm Hg. Pericardium/ Pleura There is no pericardial effusion. There is no pleural effusion. MMode/2D Measurements & Calculations LVIDd: 4.0 cm LVOT diam: 2.0 cm LVIDs: 2.9 cm Ao root diam: 3.2 cm FS: 27.7 % asc Aorta Diam: 3.0 cm IVSd: 0.72 cm Ao Arch Diam (Prox Trans): 2.8 cm LVPWd: 0.73 cm LV harper. diameter/BSA (cm/m^2): 2.5 LV sys. diameter/BSA (cm/m^2): 1.8 LA A2 area: 14.5 cm2 RA long axis: 4.2 cm LA A4 area: 15.4 cm2 RA area: 12.6 cm2 LA length (vol): 4.6 cm RA vol: 32.7 ml LA vol: 41.3 ml RA : 20.3 ml/m2 LA vol index: 25.7 ml/m2 IVC diam: 0.78 cm RVD1 (basal): 3.2 cm RVD2 (mid): 2.5 cm TAPSE: 2.1 cm Doppler Measurements & Calculations Ao V2 max: 115.9 cm/sec LVOT Max Kurtis: 97.8 cm/sec Ao V2 mean: 74.6 cm/sec LV V1 max P.8 mmHg Ao max P.4 mmHg LV V1 VTI: 21.9 cm Ao mean P.7 mmHg CARLOS ENRIQUE(I,D): 2.7 cm2 Ao V2 VTI: 24.7 cm CARLOS ENRIQUE(V,D): 2.5 cm2 sev ratio: 0.89 CARLOS ENRIQUE indexed to BSA (cm^2/m^2): 1.6 MV E max kurtis: 84.9 cm/sec TR max kurtis: 271.3 cm/sec MV A max kurtis: 50.8 cm/sec TR max P.5 mmHg MV E/A: 1.7 PA V2 max: 86.8 cm/sec Med Peak E' Kurtis: 7.9 cm/sec PA V2 mean: 64.4 cm/sec E/E' med: 10.7 PA mean P.8 mmHg Lat Peak E' Kurtis: 8.9 cm/sec PA pr(Accel): 39.6 mmHg E/E' lat: 9.6 E/e' average: 10.1 MV dec time: 0.24 sec SV([facility]): 65.6 ml Electronically signed by: Duyen Fontenot M.D. on Reading Physician:10/18/2023 06:12 AM
== END ==
LOC: ECHO 13:52
PROVIDERS: Family Provider Internal Medicine; PCP Internal Medicine; Referring Provider Internal Medicine; Visit Provider Internal Medicine
DX: R06.09 Other forms of dyspnea (principal); R06.02 Shortness of breath
CPT/HCPCS: 93306

== ENCOUNTER → 2024-06-08 14:08 | Outpatient (CLI) | payer MEDICARE, OTHER, SELFPAY ==
--- NOTE | 2024-06-08 14:10 | DI.MG.S_ITS ---
MM screening mammo BI: 06/08/2024. BI-RADS: 0 CLINICAL: 73-year old female for bilateral screening mammogram. Tyrer-Cuzick lifetime risk of 4.6%. No personal or first-degree family history of breast cancer. PRIOR EXAMS 03/12/2023, 02/08/2022, 02/21/2020, 01/13/2019, 12/27/2017, 12/05/2016, 10/10/2015, 10/04/2014. MAMMOGRAPHY TECHNIQUE: 2D and 3D (tomosynthesis) digital mammographic views obtained, with additional images as needed for full coverage. Current study was also evaluated with a Computer Aided Detection (CAD) system. DENSITY C. The breasts are heterogeneously dense, which may obscure small masses. MAMMOGRAPHY FINDINGS Right: Upper Outer at 10:00, Posterior depth: Additional imaging evaluation needed. Right: Additional imaging evaluation needed. Left: No suspicious mass, asymmetry, microcalcification, or other abnormality seen. No significant change from comparison. IMPRESSION: Right: Upper Outer at 10:00, Posterior depth * Incomplete - Needs additional imaging evaluation. Right * Incomplete - Needs additional imaging evaluation. Left * No evidence of malignancy. RECOMMENDATIONS Right * Further evaluation with diagnostic mammography and diagnostic ultrasound. Ultrasound to be performed only if needed. OVERALL ASSESSMENT CATEGORY BI-RADS-0: Incomplete - Need Additional Imaging Evaluation. ELECTRONICALLY SIGNED: Brittny Palomo M.D. on 06/08/2024 at 05:36:14 PM PT Interpreting Station ID: [id number]
== END ==
PROVIDERS: Family Provider Internal Medicine; PCP Internal Medicine; Referring Provider Family Medicine; Visit Provider Internal Medicine
DX: Z12.31 Encounter for screening mammogram for malignant neoplasm of breast (principal); R92.333 Mammographic heterogeneous density, bilateral breasts
CPT/HCPCS: 77063; 77067

== ENCOUNTER → 2024-07-19 10:20 | Outpatient (CLI) | payer MEDICARE, OTHER, SELFPAY ==
--- NOTE | 2024-07-19 10:22 | DI.US.S_ITS ---
MM diagnostic mammo unilat RT, US breast RT limited: 07/19/2024 BI-RADS: 3 CLINICAL: 73-year old female for right diagnostic mammogram and right diagnostic breast ultrasound that is a recall from screening on 06/08/2024. Tyrer-Cuzick lifetime risk of 4.6%. No personal or first-degree family history of breast cancer. PRIOR EXAMS Mammogram(s): 06/08/2024. 03/12/2023, 02/08/2022, 02/21/2020, 01/13/2019. MAMMOGRAPHY TECHNIQUE: 2D and 3D (tomosynthesis) digital mammographic views obtained, with additional images as needed for full coverage. Current study was also evaluated with a Computer Aided Detection (CAD) system. ULTRASOUND TECHNIQUE Real-time orona scale and color doppler imaging of the area of clinical interest was performed with image documentation. DENSITY Right: C. The breasts are heterogeneously dense, which may obscure small masses. MAMMOGRAPHY FINDINGS Right (finding-1): Upper Outer at 10:00: There is a focal asymmetry present. ULTRASOUND FINDINGS Right (finding-1): Upper Outer at 10:00: Correlating with findings on mammogram there is an oval, indistinct, hyperechoic mass that is parallel showing combined posterior acoustic features. Doppler shows no vascularity. This finding is favored to represent normal dense fibroglandular tissue although mass is not excluded. Right: No abnormal lymph nodes are seen in the axilla. IMPRESSION: Right (Mass): Upper Outer at 10:00 * Probably Benign. RECOMMENDATIONS Right: Upper Outer at 10:00 * Six month followup with diagnostic mammography and diagnostic ultrasound. OVERALL ASSESSMENT CATEGORY BI-RADS-3: Probably Benign. ELECTRONICALLY SIGNED: Jorge Alberto Canseco M.D. on 07/19/2024 at 08:36:14 PM PT Interpreting Station ID: [id number]
== END ==
PROVIDERS: Family Provider Internal Medicine; PCP Internal Medicine; Referring Provider Internal Medicine; Visit Provider Internal Medicine
DX: R92.8 Other abnormal and inconclusive findings on diagnostic imaging of breast (principal); R92.331 Mammographic heterogeneous density, right breast
CPT/HCPCS: 76642; 77065; G0279